=== PATIENT | male | born 1985 | race African-American/Black ===

== ENCOUNTER 2018-02-19 08:09 | Emergency (ER) | payer MEDICAID ==
[~2018-02-19] VITALS: Ht 177.8 cm; Wt 84.0 kg
[2018-02-19 09:25] VITALS: BP 122/84
== END 2018-02-19 09:36 | disposition home or self-care (01) ==
LOC: ER 08:30
DX: S80.12XA Contusion of left lower leg, initial encounter (principal); S80.11XA Contusion of right lower leg, initial encounter; F12.10 Cannabis abuse, uncomplicated; V49.49XA Driver injured in collision with other motor vehicles in traffic accident, initial encounter; Y93.89 Activity, other specified; Y92.89 Other specified places as the place of occurrence of the external cause; Y99.8 Other external cause status
CPT/HCPCS: 99282

== ENCOUNTER 2021-08-03 10:47 | Emergency (ER) | payer MEDICAID, OTHER ==
[~2021-08-03] VITALS: Ht 177.8 cm; Wt 86.0 kg
[2021-08-03] MEDS ORDERED: IBUPROFEN 600MG TABLET PO ONE (11:45)
[2021-08-03 12:04] VITALS: BP 118/72
[2021-08-03] MEDS ORDERED: IBUP-2029 MT (12:45)
[2021-08-03] MEDS ORDERED: CYCL10TA7 MT (12:45)
== END 2021-08-03 13:20 | disposition home or self-care (01) ==
LOC: ER 10:47
DX: S30.0XXA Contusion of lower back and pelvis, initial encounter (principal); S40.011A Contusion of right shoulder, initial encounter; F12.10 Cannabis abuse, uncomplicated; V43.52XA Car driver injured in collision with other type car in traffic accident, initial encounter; Y93.89 Activity, other specified; Y92.488 Other paved roadways as the place of occurrence of the external cause
CPT/HCPCS: 72100; 73030; 99284